=== PATIENT | male | born 1970 | race Caucasian/White ===

== ENCOUNTER → 2021-02-08 | Outpatient (CLI) | payer OTHER ==
--- NOTE | 2021-02-09 10:50 | ECHO ---
DATE OF PROCEDURE: 02/08/2021 Age: 50 Gender: Male Height: 69 inches Weight: 188 pounds Body surface area: 2.01 m2 PATIENT LOCATION: Outpatient. REFERRING PHYSICIAN: HERMELINDA Dash. INDICATION: Chest pain. MEASUREMENTS: 2D Measurements: RV 4.0 cm LV 4.6 cm Septum 1.1 cm Posterior wall 1.1 cm Aortic Root 3.4 cm LA 4.3 cm Doppler Measurements: AV 1.1 m/s LVOT 0.96 m/s LVOT diameter 2.2 cm MV-E 58, A 42, E/A ratio 1.4 Early mitral deceleration time 151 msec E prime medial 7.2, A prime medial 12, E prime lateral 11 PV 0.9 m/s Pulmonary artery acceleration time 141 msec PASP 18-23 mmHg IVC 1.6 cm COMMENTS: Normal sinus rhythm without intraventricular conduction disturbance. M-mode and two-dimensional echocardiography was performed with pulse, continuous wave, color flow, and tissue Doppler studies. Normal left ventricular size, wall thickness, and hyperkinetic wall motion. Mildly dilated left atrium, but normal Doppler assessment of LV diastolic function and estimated mean left atrial pressure. Normal right heart chamber sizes and motion and Doppler assessment of pulmonary arterial pressure. Normal IVC size and collapse against an elevated central venous pressure. Normal aortic dimensions. Normal appearing and functioning aortic valve. Slightly thickened mitral valve apparatus with normal leaflet excursion and perhaps marginal prolapse with mild posteriorly directed mitral insufficiency. Normal appearing tricuspid valve with mild insufficiency. No apparent intracardiac mass or pericardial effusion. MTDD
== END ==
LOC: M CARPUL 13:10
PROVIDERS: ATTEND Physician Assistant
DX: R07.9 Chest pain, unspecified (principal)

== ENCOUNTER 2021-03-06 06:27 | Emergency (ER) | payer OTHER ==
[~2021-03-06] VITALS: Ht 172.7 cm; Wt 88.9 kg
[2021-03-06] MEDS ORDERED: PANT20TA6 (06:37)
[2021-03-06] MEDS ORDERED: HYDR-4570 (06:37)
[2021-03-06] MEDS ORDERED: CRES20TA2 (06:37)
[2021-03-06] MEDS ORDERED: LISI20TA33 (06:37)
[2021-03-06] MEDS ORDERED: NORCO, ANEXSIA 5/325MG TABLET (HYDROcodone/ACETAMINOPHEN) PO ONE (07:15)
[2021-03-06] MEDS ORDERED: ACETAMINOPHEN TAB 650MG DOSE (2X325MG) PO ONE (07:30)
--- NOTE | 2021-03-06 08:03 | REPVR ---
PROCEDURE INFORMATION: Exam: CT Abdomen And Pelvis Without Contrast Exam date and time: 03/06/2021 7:42 AM Age: 51 years old Clinical indication: Abdominal pain; Additional info: Rectal pain, small palpable tender area 2 o clock position TECHNIQUE: Imaging protocol: Computed tomography of the abdomen and pelvis without contrast. Radiation optimization: All CT scans at this facility use at least one of these dose optimization techniques: automated exposure control; mA and/or kV adjustment per patient size (includes targeted exams where dose is matched to clinical indication); or iterative reconstruction. COMPARISON: No relevant prior studies available. FINDINGS: Liver: Mild hepatomegaly and steatosis. No mass. Gallbladder and bile ducts: Normal. No calcified stones. No ductal dilation. Pancreas: Normal. No ductal dilation. Spleen: Normal. No splenomegaly. Adrenal glands: Normal. No mass. Kidneys and ureters: Normal. No hydronephrosis. Stomach and bowel: Unremarkable. No obstruction. No mucosal thickening. Appendix: No evidence of appendicitis. Intraperitoneal space: Unremarkable. No free air. No significant fluid collection. Vasculature: Mild atherosclerotic disease. Lymph nodes: Unremarkable. No enlarged lymph nodes. Urinary bladder: Unremarkable as visualized. Reproductive: Unremarkable as visualized. Bones/joints: Unremarkable. No acute fracture. Soft tissues: Fat containing umbilical hernia. Bilateral inguinal hernia repair. Other findings: No clear evidence perirectal abscess. IMPRESSION: No clear evidence perirectal abscess. No bowel obstruction. Normal appendix. Mild hepatomegaly and steatosis. Electronically signed by: Parag Moncada On 03/06/2021 08:02:17 AM
[2021-03-06] MEDS ORDERED: ANUS2.5C2 PR (08:09)
[2021-03-06 08:18] VITALS: BP 141/88
== END 2021-03-06 08:26 | disposition home or self-care (01) ==
LOC: M ED 06:27
DX: K64.8 Other hemorrhoids (principal); K62.89 Other specified diseases of anus and rectum; I10 Essential (primary) hypertension; E78.5 Hyperlipidemia, unspecified; K21.9 Gastro-esophageal reflux disease without esophagitis; Z87.11 Personal history of peptic ulcer disease; Z88.6 Allergy status to analgesic agent

== ENCOUNTER → 2022-12-11 | Outpatient (CLI) | payer OTHER ==
[~2022-12-11] MED LIST: ANUS2.5C2 PR; CRES20TA2; HYDR-4570; ISOVUE-300 61% 100ML VIAL As Ordered ONE; LIDOCAINE 1% MDV 20ML VIAL As Ordered ONE; LISI20TA33; PANT20TA6; PROHANCE 279.3MG/ML 5ML VIAL As Ordered ONE
== END ==
LOC: M RAD 06:30
PROVIDERS: ATTEND Physician Assistant
DX: M25.511 Pain in right shoulder (principal)
CPT/HCPCS: 23350; 73223; 77002; A9576; Q9967

== ENCOUNTER → 2023-04-10 | Outpatient (REF) ==
[~2023-04-10] MED LIST changes: -ISOVUE-300 61% 100ML VIAL As Ordered ONE; -LIDOCAINE 1% MDV 20ML VIAL As Ordered ONE; -PROHANCE 279.3MG/ML 5ML VIAL As Ordered ONE
== END ==
LOC: M PLAIMG 13:39
PROVIDERS: ATTEND Internal Medicine
DX: M25.572 Pain in left ankle and joints of left foot (principal)